=== PATIENT | male | born 1960 ===

== ENCOUNTER → 2022-04-01 16:34 | Outpatient (CLI) | payer OTHER, SELFPAY ==
--- NOTE | 2022-04-01 | DI.US.S_ITS ---
PROCEDURE: US SCROTUM INDICATIONS: Other specified disorders of the male genital orga TECHNIQUE: Real-time scanning was performed of the scrotum and testicles, with image documentation. Color and pulse Doppler interrogation was performed of both testicles. COMPARISON: None. FINDINGS: Right: Testicle is normal in size at 4 x 2.2 x 2.7 cm. Rete testis is seen on the right. Adjacent to the rete testis, along the superior aspect of the right testicle, there is a 1.3 cm irregular lesion, with elements of hyperechogenicity and hypoechogenicity, with apparent swirling contents on cine images. There are foci of power Doppler flow seen within this lesion. Epididymis is normal in overall size and morphology. No hydrocele or varicoceles. Overlying scrotal skin is normal in thickness. Left: Testicle is normal in size at 3.8 x 2.2 x 2.9 cm, and mild rete testis is seen on the left. Epididymis is thickened and hypervascular. Abnormal fluid with septations can be seen involving the left hemiscrotum. Overlying scrotal skin is normal in thickness. Doppler: Increased vascularity can be seen within the left testicle. IMPRESSION: Abnormally increased thickening in vascularity of the left epididymis and the left testicle. Left-sided epididymo-orchitis is suspected. Abnormal septated fluid collection seen involving the left hemiscrotum, which may be related to a pyocele. Differential diagnosis includes complex spermatocele. There is an unusual appearing lesion involving the right testicle, adjacent to rete testis. The appearance is nonspecific, although this may be related to a low flow vascular lesion. Please correlate with physical examination findings. If clinically appropriate, please consider short-term follow-up ultrasound. Dictated by: Chad Sheehan M.D. on 04/02/2022 at 11:44 Transcribed by: MARLI on 04/02/2022 at 12:16 Approved by: Chad Sheehan M.D. on 04/02/2022 at 14:16
== END ==
PROVIDERS: Family Provider Family Medicine; PCP Nurse Practitioner Family; Referring Provider Urology; Visit Provider Urology
DX: N50.89 Other specified disorders of the male genital organs (principal)
CPT/HCPCS: 76870

== ENCOUNTER 2022-12-13 18:04 | Emergency (ER) | payer OTHER, SELFPAY ==
[2022-12-13 18:38] VITALS: PULSE 60; RESP 18; TEMP 37.1; O2SAT 97; BMI 29.2
--- NOTE | 2022-12-13 18:45 | DI.RAD.S_ITS ---
PROCEDURE: XR FINGER LT MIN 2V INDICATIONS: Cut tip of middle finger off TECHNIQUE: AP hand, 2 views of the left 3rd finger(s) acquired. COMPARISON: None. FINDINGS: Bones: There is a smooth osseous defect of the medial 3rd distal phalanx tuft. No other fractures. Normal bone alignment. No suspicious bone lesions. Soft tissues: There is a soft tissue defect in the medial tip of the 3rd digit. No radiodense debris seen. IMPRESSION: 1. Open partial amputation of the left 3rd distal phalanx tuft. Dictated by: Padmini Vasquez M.D. on 12/13/2022 at 19:45 Approved by: Padmini Vasquez M.D. on 12/13/2022 at 19:46
--- NOTE | 2022-12-13 19:37 | ED_ITS ---
HPI - Wound/Laceration General Chief Complaint: Wound/Laceration Stated Complaint: lt middle finger injury/lac Time Seen by Provider: 12/13/22 19:07 Source: patient Mode of arrival: Ambulatory History of Present Illness HPI narrative: 62-year-old male former smoker without chronic medical history presents with a chief complaint of an accidental injury to the tip of his left middle finger. He was using a circular saw and accidentally injured the tip of his finger. There is some soft tissue loss. He 1st went to an outside clinic and had local injection and numbing with some cleaning, he was given a Percocet encouraged to come here for further evaluation. His tetanus will need to be updated. He is otherwise well and free of complaint. Related Data Home Medications Medication Instructions Recorded Confirmed tamsulosin 0.4 mg capsule 0.4 mg PO BID 12/13/22 12/13/22 Previous Rx's Medication Instructions Recorded cephalexin 500 mg capsule 500 mg PO Q6H 7 days #28 caps 12/13/22 oxycodone 5 mg tablet 5 mg PO Q6H PRN pain #20 tabs 12/13/22 Allergies Allergy/AdvReac Type Severity Reaction Status Date / Time No Known Drug Allergies Allergy Verified 12/13/22 18:38 Review of Systems Review of Systems Narrative: GENERAL: Denies chills, fatigue, malaise, fever, sweats. HEENT: Denies sinus pain, ear pain, sore throat, difficulty swallowing, dizziness. RESPIRATORY: Denies dyspnea, cough, wheezing, hemoptysis, sputum. CARDIOVASCULAR: Denies chest pain, palpitations, orthopnea, edema, GASTROINTESTINAL: Denies nausea, vomiting, abdominal pain, diarrhea, constipation, melena. : Denies dysuria, frequency, incontinence, hematuria, urinary retention. MUSCULOSKELETAL: See HPI SKIN: Denies rash, skin lesions, or other NEUROLOGIC: Denies weakness, headache, numbness, change in speech, confusion, seizures, incoordination. PSYCHIATRIC: No concerning psychosocial issues. 12 point review of systems is negative except for those stated above Patient History Surgical History History of tonsillectomy Family History Mother Age: 78 Cancer Social History Smoking Status: Former smoker Smoking Status: Former smoker alcohol intake frequency: other Substance Use Type: marijuana Exam Narrative Exam Narrative: GEN: AOx3 and in mild distress EYES: Pupils are equal, round, and reactive to light and accommodation. Extraoccular muscles are intact bilaterally. There is no subconjunctival hemorrhage or exudate. CHEST: Lungs are clear to auscultation bilaterally and free of wheezes, rales, or rhonchi. Heart rate is regular rhythm, there are no murmurs, clicks, rubs, or gallops. There is no chest wall tenderness. ABD: Abdomen is soft and nontender. There is no guarding or rebound. Bowel sounds are normal in all 4 quadrants. There is no mass or organomegaly. EXT: Irregular laceration to tip of left middle finger distal to the D IP there is some nail bed and nail involvement and possible exposed bone, no obvious foreign body, minimal active bleeding, no evidence of foreign body. Full painless ROM of all extremities with no loss of sensation or strength. SKIN: Warm, pink, and dry. No erythema or rash Initial Vital Signs Initial Vital Signs: Vital Signs Temperature 98.7 F 12/13/22 18:38 Pulse Rate 60 12/13/22 18:38 Respiratory Rate 18 12/13/22 18:38 Pulse Oximetry 97 12/13/22 18:38 Oxygen Delivery Method Room Air 12/13/22 18:38 Procedures Nerve Block Nerve Block 1: Local Anesthetic: bupivacaine 0.25% Side: left Nerve Blocks: digital Procedure Successful: Yes Patient Tolerated Procedure: Well Complications: none Course Orders Ordered: Discontinued Medications Cefazolin Sodium (Cephalexin 250 Mg Cap Prepack) [facility] Stop: 12/13/22 19:48 Last Admin: 12/13/22 20:01 Dose: 1 bottle Documented By: VANESSA Diphtheria/Tetanus/Acell Pertussis (Tet,Diph,Pertuss(Acell),Vac/Pf 0.5 Ml Syringe) 0.5 ml IM .ONCE ONE Stop: 12/13/22 18:43 Last Admin: 12/13/22 20:02 Dose: 0.5 ml Documented By: VANESSA Oxycodone/Acetaminophen (Oxycodone/Apap 5/325 Prepack) 1 bottle MISC SEEINSTR ONE Stop: 12/13/22 19:48 Last Admin: 12/13/22 20:01 Dose: 1 bottle Documented By: VANESSA Reevaluation(s) Reevaluation #1: Digital block performed, analgesia appropriate, soaked in sterile water, scrubbed with chlorhexidine, no ongoing bleeding, no need for repair by myself. Hemostatic dressing applied by nursing as well as placement of tube gauze Consultations Consultation #1: Discussed with on-call orthopedist, Dr. Singletary. He is reviewed the patient's history and physical exam as well as imaging and recommends tetanus, antibio tics, dressing and follow up with his office Vital Signs Vital signs: Vital Signs - 8 hr 12/13/22 21:20 Pulse Rate 54 L Respiratory Rate 18 Blood Pressure 131/82 Pulse Oximetry 99 Oxygen Delivery Method Room Air MDM - Wound/Laceration MDM Narrative Medical decision making narrative: [62] year old patient presents with injury to tip of left middle finger Multiple etiologies for patient's symptoms considered including, but not limited to: [Laceration involving nail bed versus bony involvement versus other] Prior Charts reviewed in our EMR Primary Historian: patient Imaging reviewed: Open partial amputation of left middle finger Consultations: Discussed with on-call orthopedist, see details above Patient's symptoms improved over duration of stay with above-stated therapies. Findings and discharge diagnosis discussed with patient/family followed by verbalization of understanding Return precautions discussed with patient/family whom verbalize understanding of diagnosis and plan Discharge Plan Departure Patient Disposition: Home Clinical Impression: Amputation of tip of finger Instructions: DI for Traumatic Finger or Hand Amputation Activity Restrictions/Additional Instructions: *You have been diagnosed with [laceration with small fingertip amputation with bony involvement of left middle finger. *What to do: *Please continue to take your regular medications as directed. [x ] New medication prescriptions sent to your pharmacy: [ [facility]] [ ] New medication written as a paper prescription [x] Tylenol and occasional Motrin for pain *Please follow up with Dr. Hammond ] of [facility] in 2-3 days, call for an appointment. Let them know you were seen in the Emergency Department and that we ask that you be seen in follow up. We will electronically transmit a record of today's note if your PCP is in our system *Return to Emergency Department if you should have any new, worsening or concerning symptoms, such as [worsening pain, significant swelling, cold extremities, numbness, tingling, weakness or other bothersome symptoms Splint Care: Keep splint clean and dry. Elevated affected body part to decrease swelling. OK to use ice pack on the affected body part. Use for 15-20 minutes each time, for 5-6x per day. If you develop worsening pain, numbness, tingling, discoloration of the affected body part, loosen the splint by loosening the TYREE wrap, and either see your doctor for an urgent re-assessment, or return to the Emergency Department. Return to the Emergency Department for any new or worsening symptoms. Prescriptions: New cephalexin 500 mg capsule 500 mg PO Q6H 7 Days Qty: 28 0RF oxycodone 5 mg tablet 5 mg PO Q6H PRN (Reason: pain) Qty: 20 0RF No Action tamsulosin 0.4 mg capsule 0.4 mg PO BID Referrals: Nicol Hollis ARNP [Primary Care Provider] - Wolf Singletary MD [Physician] - Stand Alone Forms: Patient Portal/API
[2022-12-13] MEDS: cephALEXin 250 MG CAP PREPACK 1 BOTTLE MISC (20:01)
[2022-12-13] MEDS: OXYCODONE/APAP 5/325 PREPACK 1 BOTTLE MISC (20:01)
[2022-12-13] MEDS: TET,DIPH,PERTUSS(ACELL),VAC/PF 0.5 ML SYRINGE IM (20:02)
[2022-12-13 21:20] VITALS: BP 131/82; PULSE 54; RESP 18; O2SAT 99
== END 2022-12-13 21:20 | disposition home or self-care (01) ==
PROVIDERS: Emergency Provider Emergency Medicine; Family Provider Family Medicine; PCP Nurse Practitioner Family
DX: S68.123A Partial traumatic metacarpophalangeal amputation of left middle finger, initial encounter (principal); W27.0XXA Contact with workbench tool, initial encounter; Z23 Encounter for immunization
CPT/HCPCS: 64450; 73140; 90471; 99283; 99284; 90715

== ENCOUNTER → 2024-05-01 13:47 | Outpatient (CLI) | payer BC, SELFPAY ==
--- NOTE | 2024-05-01 13:49 | DI.MRI.S_ITS ---
PROCEDURE: MR KNEE LT WO CON INDICATIONS: INTERNAL DERANGEMENT LT KNEE TECHNIQUE: Noncontrast sagittal PD fast spin echo and T2 fast spin echo with fat saturation, sagittal 3-D FLASH with fat saturation; coronal T1 spin echo and PD fast spin echo with fat saturation, and axial PD fast spin echo with fat saturation through the knee. COMPARISON: [facility] Outside Film, CR, XR KNEE 3 VIEWS LEFT, 01/30/2024, 11:54. FINDINGS: Image quality: Excellent. Anterior cruciate ligament: Intact. Posterior cruciate ligament: Intact. Medial collateral ligament: Mild thickening of the proximal medial collateral ligament without surrounding edema is consistent with remote prior low-grade sprain. Lateral collateral ligament: Intact. Medial meniscus: Complex tearing of the medial meniscus with a diffuse horizontal component as well as superiorly displaced meniscal flap components at the anterior-posterior horn of meniscal tissue extending into the medial femoral gutter. Lateral meniscus: Mild intrasubstance degeneration as well as free edge fibrillation of the meniscal body. Medial and lateral tendons: The semimembranosus tendon insertions appear intact. Visualized portions of the pes anserinus tendons appear normal. The popliteus tendon is intact. Iliotibial band appears normal. Anterior structures: Mild proximal patellar tendinosis. The distal quadriceps tendon is intact. No patellar subluxation. No femoral trochlear dysplasia or ventral trochlear prominence. No edema in the infrapatellar fat pad. Bones: No bone marrow contusions or fractures. Medial femorotibial cartilage: Large area full-thickness cartilage loss in the weight-bearing portion of the medial femorotibial compartment with mild subchondral edema and small marginal osteophytes. Lateral femorotibial cartilage: Mild partial-thickness cartilage thinning and surface irregularity. Patellofemoral cartilage: Mild partial-thickness cartilage thinning and surface irregularity. Deep cartilage fissuring at the trochlear groove. Soft tissues: Moderate joint effusion. Trace medial popliteal cyst. The visualized musculature is age-appropriate in bulk. Mild nonspecific prepatellar subcutaneous soft tissue edema. IMPRESSION: 1. Full-thickness cartilage loss throughout the weight-bearing portion of the medial femorotibial compartment with mild subchondral edema. Mild grade 2 chondromalacia in the lateral and anterior compartments. 2. Diffuse complex tearing of the medial meniscus with horizontal component as well as a superiorly displaced meniscal flap component with tissue extending into the medial femoral gutter. 3. Intrasubstance degeneration in the body of the lateral meniscus with mild free edge fibrillation but no definite tearing. 4. Remote prior grade 1 sprain of the proximal medial collateral ligament. Pair of no acute trabecular bone injury. Cruciate ligaments are intact. 5. Mild patellar tendinosis. 6. Moderate joint effusion. Approved by: Hong Leroy M.D. on 05/01/2024 at 17:07
== END ==
PROVIDERS: Family Provider Family Medicine; PCP Nurse Practitioner Family; Referring Provider Orthopaedic Surgery; Visit Provider Orthopaedic Surgery
DX: S83.232A Complex tear of medial meniscus, current injury, left knee, initial encounter (principal); S83.412A Sprain of medial collateral ligament of left knee, initial encounter; M94.262 Chondromalacia, left knee; M25.462 Effusion, left knee; X58.XXXA Exposure to other specified factors, initial encounter
CPT/HCPCS: 73721

== ENCOUNTER → 2024-06-18 15:05 | Outpatient (CLI) | payer BC, SELFPAY ==
--- NOTE | 2024-06-18 15:07 | DI.CT.S_ITS ---
PROCEDURE: CT CHEST WO CON INDICATIONS: LUNG NODULE,FORMER SMOKER-NICOTINE TECHNIQUE: Noncontrast 2.0-2.5 mm thick sections acquired from the pulmonary apices to the posterior costophrenic angles. 7 mm thick axial MIP and 5 mm coronal and sagittal reformats were then acquired. For radiation dose reduction, the following was used: automated exposure control, adjustment of mA and/or kV according to patient size. COMPARISON: [facility], CT, CT LOW DOSE LUNG CA SCREENING, 09/12/2023, 15:53. FINDINGS: Image quality: Diagnostic. Lower Neck: No enlarged lymph nodes. Thyroid: No thyroid nodules which require sonographic follow up, per consensus guidelines. Axillae: No enlarged lymph nodes. Chest Wall: Unremarkable. Bones: No aggressive appearing bony lesions. Chronic appearing anterior wedge compression deformity at T4 level is unchanged. Chronic appearing mild T12 anterior wedge compression is also seen and unchanged. Lungs and Pleura: No pneumothorax or pleural effusions. No consolidation. Previously described 8 mm lobulated and questionable E spiculated nodule in anterior aspect of left lower lobe is again seen currently measures 7 x 8 mm in size and is essentially unchanged from prior study series 3, image 235. No new suspicious pulmonary nodule is seen. Bibasilar scarring/atelectasis is noted. Heart: Heart size is normal. No pericardial effusion. Thoracic Vessels: The aorta and pulmonary arteries demonstrate normal size. Mediastinum and [place]: No enlarged lymph nodes. Esophagus: No wall thickening. No hiatal hernia. Upper Abdomen: Visualized upper abdomen solid organs and bowel loops appear normal. IMPRESSION: 1. Stable 8 mm solid nodule in anterior left lower lobe. Additional CT chest follow-up in 12 months is recommended. 2. No new suspicious pulmonary nodules. No pleural effusion or pneumothorax. 3. No mediastinal or hilar lymphadenopathy. Fleischner Society criteria for SOLID lung nodule followup. Nodule size (mm)Low-risk patientHigh-risk patient<6 (single or multiple)No routine followup.Optional CT at 12 months. 6-8 (single or multiple)CT at 6-12 months, then optional CT at 18-24 mo.CT at 6-12 months, then CT at 18-24 months. >8 (single)CT at 3 months, PET-CT, or biopsy. Same as for low-risk pts. >8 (multiple)CT at 3-6 months, then optional CT at 18-24 mo.CT at 3-6 months, then CT at 18-24 months. Fleischner Society criteria for SUB-SOLID lung nodule followup. Solitary pure ground-glass nodules<6 mm (ground glass or part solid)No followup needed. 6 mm or larger (ground glass)CT at 6-12 months to confirm persistence, then CT every 2 years until 5 years.6 mm or larger (part solid)CT at 3-6 months to confirm persistence, then annual CT until 5 years if unchanged and solid component remains <6 mm. Multiple sub-solid nodules<6 mmCT at 3-6 months, then CT consider at 2 & 4 years for high risk patients. [address] at 3-6 months. Subsequent management based on most suspicious lesions. Recommendations do not apply to lung cancer screening, patients with immunosuppression, or patients with known primary cancer. Dictated by: Dejan Jones M.D. on 06/18/2024 at 21:01 Approved by: Dejan Jones M.D. on 06/18/2024 at 21:05
== END ==
PROVIDERS: Family Provider Family Medicine; PCP Family Medicine; Referring Provider Physician Assistant; Visit Provider Physician Assistant
DX: R91.1 Solitary pulmonary nodule (principal); Z87.891 Personal history of nicotine dependence
CPT/HCPCS: 71250